=== PATIENT | female | born 1965 | race Caucasian/White ===

== ENCOUNTER → 2018-05-23 15:42 | Outpatient (REF) | payer BC, SELFPAY ==
--- NOTE | 2018-05-23 15:00 | PAPFT_PTH ---
PATIENT: Rachana Boyce LOC: [facility] U#:[id number] AGE/SX: 59/F ROOM: RE05/23/[address]: JAZLYN Brown : 1965 BED: DIS: SPEC #: [id number] RECD: 05/23/18 17:58 STATUS: PHILOMENA REMartha #: [id number] DIGNA: 05/23/18 15:[address]: Lali Tejeda DEPT: [facility] Cytology RECD BY: Estela Burrows ENTERED: 05/23/18 17:58 SP TYPE: PAPFT OTHR DR: Melisa Gold Tissues: 1 - CX/ENDOCX FOR PAP SMEARS Procedures: PAP THIN PREP/UVM Screening HPV DNA PROBE Comments: [id number]
== END ==
LOC: LBN 15:42
PROVIDERS: PCP Family Medicine; Visit Provider Nurse Practitioner Family
DX: Z12.4 Encounter for screening for malignant neoplasm of cervix (principal); Z11.51 Encounter for screening for human papillomavirus (HPV)
CPT/HCPCS: 88142; 87624

== ENCOUNTER 2018-06-22 01:54 | Outpatient (CLI) | payer BC, SELFPAY ==
--- NOTE | 2018-06-22 15:07 | DI.MAMMO_ITS ---
SYMPTOMS/DIAGNOSIS: SCREENING, Z12.31 MAMMOGRAM: Mammograms were interpreted according to the usual protocol including computer analysis with CAD system, tomosynthesis and C view imaging. Comparison is made with exams from 2009 through 2017. The breasts are composed of fatty density tissue. No suspicious masses or suspicious microcalcifications are seen. There has been no significant change. IMPRESSION: Category I A, negative mammogram. Routine screening is recommended. SA ASSESSMENT OF FINDINGS: Negative. Category 1. Patient will receive a letter notifying them of these results. BI-RAD category A. The breasts are almost entirely fatty.
== END 2018-06-22 02:14 ==
PROVIDERS: PCP Family Medicine; Visit Provider Nurse Practitioner Family
DX: Z12.31 Encounter for screening mammogram for malignant neoplasm of breast (principal)
CPT/HCPCS: 77063; 77067

== ENCOUNTER 2018-10-02 06:37 | Day surgery (SDC) | payer BC, SELFPAY ==
--- NOTE | 2018-10-02 06:24 | W.COLOREPORT ---
Date of service: 10/02/18 Time of Service: 08:41 Colonoscopy Report Date of procedure: 10/02/18 Pre-op diagnosis general: Colon Cancer Screeening Post-op diagnosis procedure note: other (Davis-diverticulosis / rectal polyps) Procedure: Colonoscopy with polypectomy by cold forceps Surgeon: Jes Dyer Anesthesia proc note operative: MAC (Varun Brewster, KRIS / ASA 3) Estimated blood loss (mL): 3 Pathology: other (Rectal polyps x 3) Complications: None Disposition: same day Indications: Mrs. Boyce is a pleasant 52-year-old female who was seen in the office to discuss her first screening colonoscopy. She has a family history of colon cancer and a grandparent. Risks, benefits and complications have been reviewed. Complications include but are not limited to bleeding, pain, perforation, missed small lesion/polyp, sore throat, aspiration and adverse reaction to the medications. Questions were entertained and answered to their satisfaction and they wished to proceed. No guarantees were given or implied. Prep: Miralax/Dulcolax Procedure Start Time: 08:41 Procedure End Time: 09:03 Retraction Time: 16 minutes Findings: Davis-diverticulosis Rectal polyps x 3 Procedure Description: After informed consent was obtained the patient was taken to the procedure room and placed in a left decubitous position. Monitors were applied and a time out was done. The patients name, date of , procedure, allergies to medications and metal in their body was reviewed. The patient was then sedated. Once sedated and comfortable a rectal exam was done. External exam was normal. Internal exam revealed a normal sphincter tone and no palpable masses. The scope was then introduced and retro-flexed. No internal hemorrhoids were identified. The scope was then advanced to the cecum without difficulty. The TI and appendiceal orifice were identified. The prep was good. The scope was then slowly retracted over 16 minutes back into the rectum. 3 polyps were removed in the rectum with cold forceps. The scope was removed and the patient was woken up and taken back to Same day surgery in stable condition. The patient tolerated the procedure well and there were no immediate complications. Follow up: The patient should follow up in 3-5 years unless they develop changes in bowel habits or other new gastrointestinal complaints.
--- NOTE | 2018-10-02 06:26 | W.PM.DSUDISC ---
Discharge Plan Disposition Patient Disposition: HOME Condition: Good Discharge Details Reason For Visit: Colon Cancer Screening Attending Provider: Jes Dyer Primary Care Provider: Melisa Gold Home Meds and New Rx's Prescriptions: Continued ibuprofen 200 mg Capsule 200 - 400 mg PO QID PRNRF: 0 Discontinued bisacodyl [Dulcolax (bisacodyl)] 5 mg tablet,delayed release (DR/EC) 5 mg PO ONCE Qty: 4 RF: 0 polyethylene glycol 3350 17 gram/dose powder 255 g PO ONCE Qty: 255 RF: 0 Discharge Instructions Instructions: Colonoscopy (DC), Diverticulosis (DC), Colorectal Polyps (DC) Additional Instructions: Findings: 1.small polyps x 3 2. Diverticulosis Follow up: 3-5 years New Medications: none Please call if you develop: fevers >101.5 Nausea or Vomiting Abdominal pain that is not transient DAY SURGERY UNIT POST COLONOSCOPY INSTRUCTIONS 1. Because there will be medication in your system for the next 24 hours, you may feel a little sleepy. Your coordination will be affected. Therefore: a. Do not drive or operate dangerous equipment for 24 hours. b. Do not drink alcohol beverages for 24 hours (not even beer). c. Plan to go home and rest for the day. 2. Generally there are no restrictions on your activity after a day or so has gone by, but you may feel a bit fatigued for a few days. 3 After you arrive home you may have a light meal and return to a normal diet as you can tolerate it without feeling sick to your stomach. 4. After surgery, you may feel pain or discomfort. This should be only transient, but if it persists please contact your doctor. 5. If there are any questions regarding the findings of your procedure, please feel free to contact your doctor. 6. If you are unable to contact your doctor with a problem, contact the hospital at [phone]. 7. Continue all your regular medications unless directed otherwise. I understand the above instructions and have no questions. Signature of Patient or Responsible Adult Escort Date/Time Name of Responsible Adult Escort Signature of Nurse Date/Time Activity:: Activity as Tolerated Diet:: High fiber diet Discharge Orders Discharge Orders: Discharge Order (Routine); Ordered 10/02/18 Ordered By: Jes Dyer DS: Diagnosis Discharge Diagnosis (1) Colorectal polyp detected on colonoscopy: Status: Acute (2) Diverticulosis: Status: Acute
[2018-10-02 07:13] VITALS: BP 157/104; PULSE 93; RESP 18; TEMP 37.2; O2SAT 100
[2018-10-02] MEDS: Lactated Ringers 1,000 ML 80 ML IV (08:15)
--- NOTE | 2018-10-02 09:00 | BOWEL_PTH ---
PATIENT: Rachana Boyce LOC: [facility] U#:[id number] AGE/SX: 52/F ROOM: RE10/02/[address]: Jes Dyer MD : 1965 BED: DIS: 10/02/2018 SPEC #: [id number] RECD: 10/02/18 12:32 STATUS: PHILOMENA REQ #: [id number] DIGNA: 10/02/18 09:[address]: Jes Dyer DEPT: Surgical Specimen RECD BY: Estela Burrows ENTERED: 10/02/18 12:33 SP TYPE: Bowel OTHR DR: Melisa Gold Tissues: 1 - BIOPSY BOWEL Procedures: GROSS AND MICRO LEVEL 4 Comments: [id number]
[2018-10-02 09:39] VITALS: BP 140/94; PULSE 77; RESP 18; TEMP 36.9; O2SAT 97
== END 2018-10-02 09:59 | disposition home or self-care (01) ==
LOC: SUR 06:37
PROVIDERS: PCP Family Medicine; Visit Provider Surgery
PROC: 0DJD8ZZ Inspection of Lower Intestinal Tract, Via Natural or Artificial Opening Endoscopic (ICD-10-PCS; CPT 45378; principal; 2018-10-02 08:30)
DX: Z12.11 Encounter for screening for malignant neoplasm of colon (principal); K62.1 Rectal polyp; K57.30 Diverticulosis of large intestine without perforation or abscess without bleeding
CPT/HCPCS: 45380; 88305

== ENCOUNTER 2020-05-15 01:47 | Outpatient (CLI) | payer BC, SELFPAY ==
--- NOTE | 2020-05-15 14:17 | DI.MAMMO_ITS ---
EXAM: MAMMO SCREENING CLINICAL HISTORY: screening,z12.39 TECHNIQUE: Mammograms were interpreted according to the usual protocol including computer analysis w [employer] CAD system, tomosynthesis and C-view imaging. COMPARISON: 2011 through 2018 FINDINGS: The breasts are composed of mainly fatty density , Breast Density category A. No suspicious masses or suspicious microcalcifications are seen. No skin thickening or abnormal axillary lymph nodes are seen. There has been no significant change from prior exams. IMPRESSION: BI-RADS Category 1, negative mammogram Yearly screening mammography is recommended. Breast Density Category A, fatty density.
== END 2020-05-15 02:07 ==
PROVIDERS: PCP Registered Nurse; Visit Provider Nurse Practitioner Family
DX: Z12.31 Encounter for screening mammogram for malignant neoplasm of breast (principal)
CPT/HCPCS: 77063; 77067

== ENCOUNTER 2020-09-15 06:11 | Day surgery (SDC) | payer BC, SELFPAY ==
[2020-09-15 06:05] VITALS: BP 158/98; PULSE 98; RESP 20; TEMP 37.4; O2SAT 98
[2020-09-15] MEDS: Bupivacaine 0.5% Pres-Free 30 ML VIAL (07:50)
[2020-09-15] MEDS: Lidocaine 1% Multi-Dose 50 ML VIAL (07:50)
--- NOTE | 2020-09-15 08:02 | PDOC.DSDIS_ITS ---
Discharge Plan Disposition Patient Disposition: HOME Condition: Good Discharge Details Reason For Visit: RELEASE TRIGGER R LF Attending Provider: Kirk Saldivar Primary Care Provider: Merced Shoemaker Home Meds and New Rx's Prescriptions: No Action ibuprofen 200 mg Capsule 200 - 400 mg PO QID PRNRF: 0 Discharge Instructions Additional Instructions: Keep dressings dry and in place for 48 hours. After 48 hours, remove dressings. May then shower or bathe and get incision wet. Leave incision uncovered when it is dry and sealed. Bend and straighten fingers of R hand 10 times/hour, when awake, to prevent swelling and stiffness. Use R hand as much as your discomfort allows. Take tylenol or ibuprofen for pain. Follow up with on 09/24/20 for suture removal. Referrals: Kirk Saldivar MD [ [facility] STAFF PHYSICIAN] - (f/u 09/24) Activity:: Activity as Tolerated Remove Dressings/Wound Care:: 48 hours Shower/Bathe:: 48 hours Diet:: As Tolerated Discharge Orders Discharge Orders: Discharge Order (Routine); Ordered 09/15/20 Ordered By: Kirk Saldivar
--- NOTE | 2020-09-15 14:51 | W.PM.OP ---
Date of service: 09/15/20 Time of Service: 08:00 Operative Note Operative Note DATE OF PROCEDURE: 09/15/20 PRE-OP DIAGNOSIS: Trigger right little finger POST-OP DIAGNOSIS: same PROCEDURE: Tendon sheath incision right little finger for trigger finger SURGEON: Kirk Saldivar ANESTHESIA: local COMPLICATIONS: None Patient was transported to: same day Indications: This is a 54-year-old white female with painful locking of her right little finger of almost 3 months duration. She attributes the onset to doing a lot of painting of a property fence. She has progressed from triggering of the right little finger to inability to flex her little finger more than 90 degrees at the PIP joint. Trigger finger release was recommended to restore full active motion of the little finger and alleviate her pain. Procedure Description: Patient taken the operating room on 09/15/2020 and placed supine operating table. The right hand was prepped and draped free in the usual sterile fashion. I infiltrated over the proximal bjorn of the right little finger with 1% Xylocaine solution. I made a transverse incision 5 mm distal to the palmar flexion crease and parallel to it, centered over the flexor tendon to the right little finger. Incision was about 2 cm in length. Incision was carried down through the skin to the subcutaneous fat. Blunt tipped Littler scissors were then used to mobilize soft tissue away from the flexor tendon sheath. Retractors were inserted. Under direct vision I incised the proximal bjorn of the flexor sheath with a 15 blade. I then completed the release of the proximal bjorn with Littler scissors proximal and distal. To confirm that the release was complete, I had the patient actively flex and extend her right little finger. She is now able to flex and extend the right little finger fully and without triggering. The wound was irrigated with saline solution. The wound margins were then infiltrated with point 5% Marcaine solution. The skin is approximated with 3 interrupted 4 nylon sutures. Wound was dressed with Xeroform gauze sterile gauze 4 x 4's and then wrapped with a 2 inch Luci bandage for light pressure dressing. Patient taught procedure well and she was discharged to the surge unit in good condition. Patient was discharged home from day surgery unit with instructions to keep her dressings dry and intact for 48 hours. She is encouraged to flex and extend her right little finger 10 times an hour while awake to prevent swelling and stiffness. After 48 hours she is to remove her dressings. She may then shower bathe and get her incision wet. She can leave the incision uncovered when it is dry and sealed. She may use her right hand as much as discomfort allows. She will follow-up with Dr. Saldivar on 09/24/2020 for suture removal. She will take Tylenol or ibuprofen for pain.
== END 2020-09-15 08:25 | disposition home or self-care (01) ==
PROVIDERS: PCP Registered Nurse; Visit Provider Orthopaedic Surgery
PROC: (CPT 26055; principal; 2020-09-15 07:30)
DX: M65.351 Trigger finger, right little finger (principal)
CPT/HCPCS: 26055

== ENCOUNTER 2021-08-31 16:07 | Outpatient (REF) | payer BC, SELFPAY ==
--- NOTE | 2021-08-31 15:00 | PAPFT_PTH ---
PATIENT: Rachana Boyce LOC: [facility] U#:[id number] AGE/SX: 55/F ROOM: RE08/31/[address]: JAZLYN Brown : 1965 BED: DIS: 08/31/2021 SPEC #: [id number] RECD: 08/31/21 18:32 STATUS: MAKENNADk REQ #: [id number] DIGNA: 08/31/21 15:[address]: Lali Tejeda DEPT: [facility] Cytology RECD BY: Estela Burrows ENTERED: 08/31/21 18:33 SP TYPE: PAPFT OTHR DR: Merced Shoemaker Tissues: 1 - CX/ENDOCX FOR PAP SMEARS Procedures: PAP THIN PREP/UVM Screening HPV DNA PROBE Comments: [id number]
== END 2021-08-31 16:08 | disposition home or self-care (01) ==
LOC: LBN 16:07
PROVIDERS: PCP Registered Nurse; Visit Provider Nurse Practitioner Family
DX: Z12.4 Encounter for screening for malignant neoplasm of cervix (principal); Z11.51 Encounter for screening for human papillomavirus (HPV)
CPT/HCPCS: 88142; 87624

== ENCOUNTER → 2022-02-24 00:26 | Outpatient (CLI) | payer BC, SELFPAY ==
--- OUTSIDE RECORDS SUMMARY | 2022-02-24 00:28 | XMS_ITS | Encounter Summary ---
:1965 Author Care Team Providers Name Role Phone Amanda Medel Melissa MACIAS Primary Care Provider [phone] Zack Echols MD Promotion Manager [phone] Reason for Visit None recorded. Assessment and Plan Assessment Note This is a consultation for a 61-yea r-old lady for her throat. 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 She has some difficulty to swallow in the form of feeling food to get stuck but she always eventually swallows effectively in the end she does not regu rgitate she is a never smoker nondrinker did not have a tonsillectomy as no nasal sym ptoms and no sensation of any reflux a fiberoptic was performed showing complet maria guadalupe normal pharyngeal and laryngeal structure. The pharynx offers a Mallampa ti 4 configuration the neck has no outstanding nodes I reassured the patien t as to the anatomy of her neck if she feels that there is any change in her conditio n she is welcome to consult again for now I tend to think that she is having consequ ence of neuritis post COVID thank you Discussion Note: None recorded.Patient educational handouts: No information available. Plan of Care Reminders Provider Appointments None ? ? recorded. Lab None ? ? recorded. Referral None ? ? recorded. Procedures None ? ? recorded. Surgeries None ? ? recorded. Imaging None ? ? recorded. Medications Name Start Date ? ? losartan 50 mg tablet ? TAKE ONE TABLET BY MOUTH EVERY DAY Medications Administered None recorded. Vitals None recorded. Results Lab Results None recorded. Allergies Code Code System Name Reaction Severity Onset 20350120 RxNorm Compazine Nausea ? ? Penicillins Facial Swelling ? ? Notes: ilasone - history of rhett rgy Problems Name Status Onset Date Source ? Overactive Bladder Active 04/22/2020 ? Benign Essential Hypertension Active 09/23/2021 ? Adjustment Disorder Active ? History Disorder of Upper Respiratory System Active ? History Disorder of Hyperalimentation Active ? Hi story Elevated Blood-pressure Reading without Active ? History Diagnosis of Hypertension Disorder of Skin And/or Subcutaneous Active ? History Tissue Screening for Cardiovascular System Active ? History Disease Procedures Date Name Performed by ? 09/15/2020 Release of Trigger Finger Information no t available Notes: Right little finger ? Colonoscopy Information not avai lable Notes: W/Polypectomy, 3-5 year call b ack Per [facility] 10/02/2018 Vaccine List Vaccine Type influenza, seasonal, injectable 10/17/2002 Td (adult), adsorbed 10/17/1993 Social History Tobacco Smoking Status Never Smoker What is your level of alcohol None consumption? Live alone or with others? with others Notes: son Are you currently employed? Y Are you blind or do you have N Notes: W ears corrective difficulty seeing? lenses What is your code status? 0 Language Difficulties No How much tobacco do you chew? none Are you passively exposed to N smoke? Hard of hearing or deaf in one N or both ears? Do you or have you ever used Never used electronic e-cigarettes or vape? cigarettes What is your level of caffeine Occasional Notes: some tea consumption? 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 Moderate Notes: w alking Functional Status No Impairment. Past Encounters 02/23/2022 Zack Echols MD: [address] [place] [phone], Ph. History of Present Illness None recorded. Review of Systems None recorded. Physical Exam None recorded.
--- OUTSIDE RECORDS SUMMARY | 2022-02-24 00:28 | XMS_ITS ---
:1965 Author Care Team Providers Name Role Phone SEBASTIAN Medel SALVADOR MACIAS Primary Care Provider [phone] OSCAR QUINONES MD Diesel Powerplant Mechanic [phone] Allergies Code Code System Name Reaction Severity Status Onset 20350120 RxNorm Compazine Nausea ? Active ? Penicillins Facial ? Active ? Swelling Notes: ilasone - history of rhett rgy Medications Name Status Start Date Stop Date ? ? Ceftin 500 mg tablet Completed 02/17/2012 02/27/2012 1 Tablet: bid - twice daily hydrochlorothiazide 12.5 mg tablet Completed ? 12/08/2020 TAKE ONE TABLET BY MOUTH EVERY DAY losartan 100 mg tablet Completed ? 2 TAKE ONE TABLET BY MOUTH EVERY DAY losartan 50 mg tablet Active ? Not availa ble TAKE ONE TABLET BY MOUTH EVERY DAY oxybutynin chloride 5 mg tablet Completed ? 09/22/2020 Take 1 tablet every day by oral route. oxybutynin chloride ER 5 mg Completed ? 11/2019 tablet,extended release 24 hr Zithromax Z-Thomas 250 mg tablet Completed 12/04/2008 Problems Name Status Onset Date Source ? Overactive Bladder Active 04/22/2020 ? Benign Essential Hypertension Active 09/23/2021 ? Adjustment Disorder Active ? History Acute Bronchitis Unknown ? History Disorder of Upper Respiratory System Active ? History Disorder of Hyperalimentation Active ? Hi story Elevated Blood-pressure Reading Active ? History without Diagnosis of Hypertension Disorder of Skin And/or Subcutaneous Active ? History Tissue Routine Care Unknown ? History Screening for Cardiovascular System Active ? History Disease Procedures Date Name Performed by ? 09/15/2020 Release of Trigger Finger Information no t available Notes: Right little finger ? Colonoscopy Information not avai lable Notes: W/Polypectomy, 3-5 year call b ack Per [facility] 10/02/2018 Results Lab Results Date Name Specimen Result Interpretation Description Value Range Status Address ? 11/18/2020 SARS CoV 2 SWAB CRITICAL Covid-19 positive negative Final [place] RNA ABNORMAL [facility] (COVID-19), Result [facility], senior education specialist-PCR, (Int ernal): Respiratory [address] Specimen [place]one [address] ? ? SWAB ? Performing [facility] ? Final Nort [facility] Lab [facility] (Internal) : [address] Past Encounters 02/23/2022 Oscar Quinones MD: [address] [place] [address], Ph. 12/10/2020 Elevated Blood-pressure Reading without Diagnosis of Hypertension; Fatigue Sebastian Torres, FIELD [employer] FARM WORKER: [address] [place] [address], Ph. 11/26/2020 Essential Hypertension; Covid-19 Sebastian Torres [employer]ELD [employer] FARM WORKER: [address] [place] [address], Ph. 10/20/2020 Elevated Blood-pressure Reading without Diagnosis of Hypertension Sebastian Torres [employer] WORKER: [address] [place] [address], Ph. 09/22/2020 Essential Hypertension; Administration o f Influenza Vaccine Sebastian Torres [employer] WORKER: [address] [place] [address], Ph. Social History Tobacco Smoking Status Never Smoker Vaccine List Vaccine Type influenza, seasonal, injectable 10/17/2002 Td (adult), adsorbed 10/17/1993 Plan of Care Reminders Provider Appointments None ? ? recorded. Lab None ? ? recorded. Referral None ? ? recorded. Procedures None ? ? recorded. Surgeries None ? ? recorded. Imaging None ? ? recorded. Vitals 12/10/2020 02:20PM Follow Up 40 Height Weight BMI Blood Pressure 167.64 cm 98.6 kg 35.1 kg/m2 118/80 mm[Hg] 10/20/2020 01:40PM Follow Up 20 Height 167.64 cm 09/22/2020 08:20AM Office AISLINN 40 Height Weight BMI Blood Pressure 167.64 cm 105.35 kg 37.5 kg/m2 180/118 mm[Hg] 02/17/2012 Height 161.29 cm 02/17/2012 Weight Blood Pressure 98.88 kg 140/90 mm[Hg] 12/31/2009 Height 160.66 cm 12/31/2009 Weight Blood Pressure 95.93 kg 152/102 mm[Hg] 09/02/2009 Blood Pressure (1) 158/90 mm[Hg] (2) 144/100 mm[Hg] 07/01/2009 Blood Pressure (1) 158/96 mm[Hg] (2) 146/96 mm[Hg] 06/17/2009 Weight Blood Pressure 104.33 kg (1) 148/102 mm[Hg] (2) 142/94 mm[Hg] 12/04/2008 Blood Pressure 142/90 mm[Hg] 07/27/2007 Blood Pressure 124/92 mm[Hg] 07/20/2007 Blood Pressure 126/86 mm[Hg] 08/16/2006 Blood Pressure 120/82 mm[Hg] 01/18/2005 Weight Blood Pressure 94.43 kg 124/86 mm[Hg] 08/13/2004 Height 163.83 cm 08/13/2004 Weight Blood Pressure 95.82 kg 142/90 mm[Hg]
--- NOTE | 2022-02-24 15:48 | DI.MAMMO_ITS ---
Exam(s) MAMMO SCREENING EXAM: MAMMO SCREENING CLINICAL HISTORY: screening,z12.39 TECHNIQUE: Mammograms were interpreted according to the usual protocol including computer analysis w [employer] CAD system, tomosynthesis and C-view imaging. COMPARISON: 2011 through 2019 FINDINGS: The breasts are composed of mainly fatty density , Breast Density category A. No suspicious masses or suspicious microcalcifications are seen. No skin thickening or abnormal axillary lymph nodes are seen. There has been no significant change from prior exams. IMPRESSION: BI-RADS Category 1, Negative mammogram Yearly screening mammography is recommended. Breast Density - Category A, fatty density. A negative radiographic report should not delay biopsy if a dominant or clinically suspicious mass is present. Up to ten percent of cancers are not identified on mammography. A negative report may reinforce clinical impression. Adenosis and dense breasts may obscure an underlying neoplasm. False positive reports average 6 to 10%. Patient will receive a letter notifying them of these results.
== END ==
PROVIDERS: PCP Registered Nurse; Visit Provider Nurse Practitioner Family
DX: Z12.31 Encounter for screening mammogram for malignant neoplasm of breast (principal)
CPT/HCPCS: 77063; 77067

== ENCOUNTER → 2023-06-02 03:04 | Outpatient (CLI) | payer BC, SELFPAY ==
--- NOTE | 2023-06-02 12:45 | DI.MAMMO_ITS ---
Exam(s) MAMMO SCREENING EXAM: MAMMO SCREENING CLINICAL HISTORY: screening. TECHNIQUE: Bilateral full field digital CC and MLO mammographic images were obtained with 3D tomosyn thesis and utilizing computer aided detection (CAD). COMPARISON: Prior mammograms were reviewed. FINDINGS: There has been no significant change in the appearance and distribution of the fibroglandular tissue. There are no new spiculated masses nor malignant appearing microcalcification groups. There is no significant architectural distortion nor skin thickening-retraction. IMPRESSION: No radiographic evidence of malignancy. BI-RADS Category 1 - Negative Breast Density - Category B - Scattered areas of fibroglandular density Breast density Category C or D implies that the patient has dense breast tissue. Dense breast tissue can make it harder to find cancer on a mammogram. Dense breast tissue is also associated with an incr eased risk of breast cancer. This information about the result of the mammogram report was provided to the patient to raise their awareness. Use this report when you speak with the patient about their risks for breast cancer, which includes their family history. At that time, you may recommend additional screening tests (Ultrasoun d or MRI) as these tests may add significant information. A negative radiographic report should not delay biopsy if a dominant or clinically suspicious mass is present. Up to ten percent of cancers are not identified on mammography. A negative report may reinforce clinical impression. Adenosis and dense breasts may obscure an underlying neoplasm. False positive reports average 6 to 10%. Patient will receive a letter notifying them of these results.
== END ==
PROVIDERS: PCP Registered Nurse; Visit Provider Obstetrics & Gynecology
DX: Z12.31 Encounter for screening mammogram for malignant neoplasm of breast (principal)
CPT/HCPCS: 77063; 77067

== ENCOUNTER 2024-10-11 00:02 | Outpatient (CLI) | payer BC, SELFPAY ==
--- NOTE | 2024-10-11 08:14 | DI.MAMMO_ITS ---
Exam(s) MAMMO SCREENING EXAM: MAMMO SCREENING CLINICAL HISTORY: screening, Z12.31 TECHNIQUE: Mammograms were interpreted according to the usual protocol including computer analysis w [employer] CAD system, tomosynthesis and C-view imaging. COMPARISON: 2016 through 2022 FINDINGS: The breasts are composed of mainly fatty density , Breast Density category A. No suspicious masses or suspicious microcalcifications are seen. No skin thickening or abnormal axillary lymph nodes are seen. There has been no significant change from prior exams. IMPRESSION: BI-RADS Category 1, Negative mammogram Yearly screening mammography is recommended. Breast Density - Category A, fatty density. A negative radiographic report should not delay biopsy if a dominant or clinically suspicious mass is present. Up to ten percent of cancers are not identified on mammography. A negative report may reinforce clinical impression. Adenosis and dense breasts may obscure an underlying neoplasm. False positive reports average 6 to 10%. Patient will receive a letter notifying them of these results.
== END 2024-10-11 00:22 ==
LOC: DI 00:02
PROVIDERS: PCP Registered Nurse; Visit Provider Obstetrics & Gynecology
DX: Z12.31 Encounter for screening mammogram for malignant neoplasm of breast (principal); R92.313 Mammographic fatty tissue density, bilateral breasts
CPT/HCPCS: 77063; 77067

== ENCOUNTER 2025-04-08 10:51 | Outpatient (CLI) | payer BC, SELFPAY ==
--- NOTE | 2025-04-08 10:45 | DI.RAD_ITS ---
Exam(s) XR KNEE RT 4V AP,LAT,DILAN,PAT EXAM: XR KNEE RT 4V AP,LAT,DILAN,PAT CLINICAL HISTORY: evlatuate pathology S89.90XA INJURY. TECHNIQUE: 2D digital imaging was performed. Three views. COMPARISON: No exams were available for comparison FINDINGS: BONES: No acute fracture is present. No bony destructive lesion is seen. JOINTS: Joint spaces are maintained. There is mild periarticular spurring. The knee is normally aligned. No joint effusion is seen. SOFT TISSUE: Normal. IMPRESSION: Mild degenerative changes. DATA REPOSITORY: RADIATION DOSE DELIVERED:
--- NOTE | 2025-04-08 10:45 | DI.US_ITS ---
Exam(s) US LOWER EXTREMITY VENOUS RT EXAM: US LOWER EXTREMITY VENOUS RT CLINICAL HISTORY: evaluate DVT M79.606 PAIN LEG. TECHNIQUE: Lower extremity venous ultrasound performed using grayscale, color- flow, and spectral Doppler analysis. COMPARISON: CR XR KNEE RT 4V AP,LAT,DILAN,PAT from 04/08/2025 FINDINGS: The common femoral, femoral and popliteal veins demonstrate normal compressibility, augmentation, and color Doppler. The posterior tibial and peroneal veins are patent. No saphenous vein thrombosis or other superficial venous thrombosis is seen. No hematoma or Pimentel's cyst is seen. There is a small amount of fluid adjacent to the medial border of the patella. IMPRESSION: Small amount fluid adjacent the medial border of the patella. No evidence of DVT. DATA REPOSITORY:
== END 2025-04-08 11:11 ==
LOC: DI 10:51
PROVIDERS: PCP Registered Nurse; Visit Provider Nurse Practitioner Family
DX: M79.604 Pain in right leg (principal); S89.91XA Unspecified injury of right lower leg, initial encounter; X58.XXXA Exposure to other specified factors, initial encounter
CPT/HCPCS: 73564; 93971